=== PATIENT | male | born 1945 | race Caucasian/White ===

== ENCOUNTER 2017-02-03 08:00 | Day surgery (SDC) | payer MEDICARE, OTHER ==
[2017-02-03 07:52] VITALS: TEMP 96.5
[~2017-02-03 08:00] MED LIST: LACTATED RINGERS 1,000 ML ONE
[2017-02-03 08:29] VITALS: BP 160/93; O2SAT 95
--- NOTE | 2017-02-03 09:47 | OP ---
DATE OF PROCEDURE: 02/03/17 PREOPERATIVE DIAGNOSIS: 1. Colon cancer screen. 2. Recent episode of bright red blood per rectum. POSTOPERATIVE DIAGNOSIS: 1. External hemorrhoids. 2. Sigmoid diverticulosis. 3. 10 cm area of colitis extending from 20 to 30 cm which was in the sigmoid colon. PROCEDURE: 1. Colonoscopy with biopsy of the area of colitis. SURGEON: Giacomo Michele MD. ANESTHESIA: MAC by Gerry Nassar CRNA. ESTIMATED BLOOD LOSS: Less than 2 mL. COMPLICATIONS: None apparent. TECHNIQUE: After informed consent was obtained from the patient, the patient was taken to the Endoscopy Suite and put in the left lateral decubitus position. After adequate IV sedation was obtained, a digital rectal exam was performed. The patient is noted to have non-thrombosed external hemorrhoidal tags, but no evidence of inflammation or bleeding. Sphincter tone was normal, prostate is smooth, 2+ and anodular. No intraluminal masses. The colonoscope was then passed with good visualization through the colon. The bowel prep was adequate, but there was moderate amount of liquid stool that had to be suctioned clear in different areas throughout the colon. In the sigmoid colon around 20 to 30 cm, there was an area of very intense inflammation, edema and evidence of recent bleeding. This looks like colitis. Cancer could not be excluded. No distinct masses or polyps were identified in this area. The patient was also noted to have some scattered diverticula throughout the sigmoid region. The scope was advanced all the way to the cecum, which was identified by the presence of the typical landmarks including the ileocecal valve and scar from his prior appendectomy. The scope was then withdrawn over about a 12 minute period and a good look at the entire colonic mucosa was obtained. No other abnormalities except those described above were identified. I took two biopsies from the more inflamed portions of the sigmoid colon. There was a little bit of brisk bleeding immediately after the biopsy, but it quickly subsided and I think we are going to have good hemostasis. No electrocautery was necessary. The scope was removed. The patient tolerated the procedure well. The patient was transported to the outpatient area in good condition. I am going to have him start a high fiber diet and we will have him come see me in the office in one week so we can review his pathology. #[id number] [facility]
[2017-02-03] MEDS ORDERED: PROPOFOL 200 MG/20 ML VIAL IV ONE (12:00)
== END 2017-02-03 08:30 | disposition home or self-care (01) ==
LOC: AMB 08:00
PROVIDERS: ATTEND Family Medicine
DX: K62.5 Hemorrhage of anus and rectum (principal); K52.9 Noninfective gastroenteritis and colitis, unspecified; K64.4 Residual hemorrhoidal skin tags; K57.30 Diverticulosis of large intestine without perforation or abscess without bleeding; I25.10 Atherosclerotic heart disease of native coronary artery without angina pectoris; J44.9 Chronic obstructive pulmonary disease, unspecified; E78.00 Pure hypercholesterolemia, unspecified; Z95.5 Presence of coronary angioplasty implant and graft; Z87.891 Personal history of nicotine dependence; Z79.82 Long term (current) use of aspirin; Z79.899 Other long term (current) drug therapy
CPT/HCPCS: 00810; 45380; 88305; J3490; J7120

== ENCOUNTER 2017-05-22 05:00 | Day surgery (SDC) | payer MEDICARE, OTHER ==
--- NOTE | 2017-05-17 16:03 | RAD ---
EXAM DESCRIPTION: Chest,2 Views CLINICAL HISTORY: surg 05/22/17 COMPARISON: None FINDINGS: Two-view chest x-ray shows cardiomediastinal silhouette and pulmonary vasculature to be within normal limits. The lungs are hyperinflated. No acute infiltrate or consolidation is seen. Chronic interstitial markings are noted.. Costophrenic angles are sharp. Osseous structures are unremarkable IMPRESSION: No radiographic evidence of acute cardiopulmonary disease in this emphysematous chest. Electronically signed by: Cachorro Jesus MD 05/17/2017 4:01 PM CDT
[2017-05-22] MEDS ORDERED: ceFAZolin SODIUM 1 GM VIAL ONE (06:31)
[2017-05-22] MEDS ORDERED: SODIUM CHL 0.9% 100ML MINI-BAG 100 ML IVPB ONE (06:31)
[2017-05-22] MEDS ORDERED: LACTATED RINGERS 1,000 ML ONE (06:31)
[2017-05-22 08:11] VITALS: BP 145/69; O2SAT 97
[2017-05-22] MEDS ORDERED: ROCURONIUM BROMIDE 10 MG/ML VIAL ONE (08:24)
[2017-05-22] MEDS ORDERED: MIDAZOLAM INJ 2 MG/2 ML VIAL ONE (08:24)
[2017-05-22] MEDS ORDERED: fentaNYL CITRATE INJ 50 MCG/ML AMP ONE (08:24)
[2017-05-22] MEDS: BUPIVACAINE 0.25% W/EPI 50 ML VIAL INJ ONE ×2 (09:11→09:15)
[2017-05-22] MEDS ORDERED: ELECTROLYTE-A 1,000 ML IVS ONE (09:54)
[2017-05-22] MEDS ORDERED: DEXAMETHASONE INJ 10 MG/ML VIAL IV ONE (10:00)
[2017-05-22] MEDS ORDERED: KETOROLAC TROMETHAMINE INJ 30 MG/ML VIAL IV ONE (10:00)
[2017-05-22] MEDS ORDERED: raNITIdine HCL INJ 25 MG/ML VIAL IV ONE (10:00)
[2017-05-22] MEDS ORDERED: PROPOFOL 200 MG/20 ML VIAL IV ONE (10:00)
[2017-05-22] MEDS ORDERED: PHENYLEPHRINE INJ 1ML 10 MG/ML VIAL IV ONE (10:00)
[2017-05-22] MEDS ORDERED: ePHEDrine SULF 50 MG/ML IV ONE (10:00)
[2017-05-22] MEDS ORDERED: SODIUM CHLORIDE 0.9% 50 ML VIAL INJ ONE (10:00)
[2017-05-22] MEDS ORDERED: LIDOCAINE 1% 10 ML VIAL INJ ONE (10:00)
[2017-05-22] MEDS ORDERED: METOCLOPRAMIDE HCL INJ 10 MG/2 ML VIAL IV ONE (10:00)
[2017-05-22] MEDS ORDERED: SUGAMMADEX SODIUM 200 MG/2 ML VIAL IV ONE (10:21)
[2017-05-22 11:18] VITALS: TEMP 96.6
--- NOTE | 2017-05-22 11:56 | OP ---
DATE OF PROCEDURE: 05/22/17 PREOPERATIVE DIAGNOSIS: 1. Left inguinal hernia. POSTOPERATIVE DIAGNOSIS: 1. Left inguinal hernia. PROCEDURE: 1. Repair of left inguinal hernia. SURGEON: Santos Foster MD. DRAFTER ELECTRONIC: None. ANESTHESIA: General endotracheal anesthesia and local infiltration of 0.25% Marcaine with epinephrine. INDICATION: The patient is a 71-year-old male who has had a hernia for approximately 10 years. It has become more symptomatic and larger recently. He has undergone a workup of his colon by Dr. Sanchez and has been cleared for herniorrhaphy by his physicians. He was brought to the Surgical Suite today for the hernia repair. The risks, benefits and alternatives were discussed and accepted. FINDINGS: The patient had a large indirect inguinal hernia with somewhat loosening of the floor of the canal, but no direct herniation. There was no sliding component. PROCEDURE: After adequate general endotracheal anesthesia was obtained, the patient was prepped and draped in the usual sterile manner. He was given IV Ancef. At this point, a surgical time-out was taken. An incision in the left groin was first marked with a marking pen and the infiltration of anesthesia. The skin was incised with a knife. Dissection was carried down through the skin and subcutaneous tissue to the external oblique fascia using electrocautery and blunt dissection. The external oblique fascia was then opened in the direction of the fibers through the external ring and was dissected free from the floor of the canal and the cord. Self-retaining retractor was placed at this level. The cord and nerves were dissected free from the cord and from the floor of the canal. The nerve was dissected inferiorly. A half inch Olive drain was placed around it for traction. The cord was then explored with the indirect hernia sac dissected free down to the level of the internal inguinal ring. Cord lipoma times two were excised using electrocautery and clamps, ligatures of 3-0 Vicryl. When this was done, a Surgimesh patch was introduced under the floor of the canal and sutured circumferentially to close the indirect defect. The Surgimesh patch was then fashioned around the cord in the usual manner with interrupted 2-0 Vicryl sutures. When this was done, the wound was irrigated with saline. Hemostasis was noted to be adequate. The cord was placed back in position in the canal. The external oblique fascia was then closed with running 3-0 Vicryl suture. The cord and subcutaneous tissue above, below and lateral to the incision were infiltrated with local anesthesia. The Michaela's fascia was approximated with interrupted 3-0 Chromic suture. Skin edges were approximated with skin stapler. Sterile pressure dressing was applied. The scrotum was checked for position of the testicle. The patient was awakened and taken to the Recovery Room in good and stable condition. Estimated blood loss was less than 50 mL. All sponge, needle and instrument counts were correct. #[id number] [facility]
== END 2017-05-22 11:55 | disposition home or self-care (01) ==
LOC: AMB 05:00
PROVIDERS: ATTEND Surgery
DX: K40.90 Unilateral inguinal hernia, without obstruction or gangrene, not specified as recurrent (principal); J44.9 Chronic obstructive pulmonary disease, unspecified; I10 Essential (primary) hypertension; I25.10 Atherosclerotic heart disease of native coronary artery without angina pectoris; E78.00 Pure hypercholesterolemia, unspecified; Z87.891 Personal history of nicotine dependence; Z95.5 Presence of coronary angioplasty implant and graft; Z79.899 Other long term (current) drug therapy
CPT/HCPCS: 00830; 36415; 49505; 71020; 80048; 81001; 85025; 93005; A4216; C1781; J0690; J1100; J1885; J2250; J2765; J2780; J3010; J3490; J7050; J7120

== ENCOUNTER → 2017-07-04 | Outpatient (CLI) | payer MEDICARE, OTHER | END | disposition home or self-care (01) | LOC: GMAJ 10:29 | PROVIDERS: ATTEND Family Medicine | DX: Z12.5 Encounter for screening for malignant neoplasm of prostate (principal) ==

== ENCOUNTER 2018-01-08 17:56 | Observation (INO) | payer MEDICARE, OTHER ==
[2018-01-08] MEDS ORDERED: ENOXAPARIN SODIUM 100 MG/ML SYG SUBCU ONE (19:49)
[2018-01-08] MEDS ORDERED: PANTOPRAZOLE SODIUM IV 40 MG VIAL IV ONE (19:50)
[2018-01-08] MEDS ORDERED: IPRATROPIUM/ALBUTEROL 3 ML VIAL NEB ONE (19:54)
--- NOTE | 2018-01-08 20:00 | ED.PDOC ---
History of Present Illness - General Chief Complaint: General Stated Complaint: abnormal labs Time Seen by Provider: 01/08/18 18:00 Source: patient Exam Limitations: no limitations - History of Present Illness Initial Comments: the patient is a 72-year-old patient that was seen here earlier this morning secondary to left anterior lateral chest pain that was fairly sharp in nature lasting probably less than 10 minutes. The patient was seen this morning and the chest pain had resolved by the time he arrived here. He'll take a couple of aspirin at home. Due to him having a history of coronary artery disease the plan was to put him in for a long rule out. The patient would have none of it and left AGAINST MEDICAL ADVICE. Apparently during the day his daughter and Dr. Michele managed to convince him to come back in for the longer rule out. The patient has had no recurrence of the chest pain since this morning. He does report that he did get an exercise bicycle yesterday and did exercise very hard and he thinks this may be the source of the chest discomfort as a medical muscle. This is possible. He does not have any chest wall tenderness to palpation. He does not have any pain with movement. He does have some COPD and does have some very mild scattered wheezes which may also be contributing. No evidence of any real overt infection at this time. No fevers. No productive cough. He is not hypoxic. Timing/Duration: 1/2 hour Severity: moderate Improving Factors: medication Worsening Factors: nothing Associated Symptoms: chest pain Allergies/Adverse Reactions: Allergies NO KNOWN ALLERGY Allergy (Verified 11/24/13 08:08) Home Medications: Ambulatory Orders Albuterol Inhaler [Ventolin Hfa Inhaler] 1 puff INH DAILY 02/01/17 Albuterol Inhaler [Ventolin Hfa Inhaler] 1 puff INH PRN PRN 02/01/17 Fluticasone/Salmeterol 100/50 [Advair Diskus] 1 puff INH PRN PRN 02/01/17 Metoprolol Succinate [Metoprolol Succinate ER] 25 mg PO PRN PRN 02/01/17 Aspirin [Aspirin Adult Low Dose] 81 mg PO 05/17/17 Atorvastatin Calcium [Lipitor] 20 mg PO 05/17/17 Furosemide [Lasix] 20 mg PO PRN 05/17/17 Review of Systems - Review of Systems Constitutional: States: no symptoms reported EENTM: States: no symptoms reported Respiratory: States: no symptoms reported Cardiology: States: chest pain Gastrointestinal/Abdominal: States: no symptoms reported Genitourinary: States: no symptoms reported Musculoskeletal: States: no symptoms reported Skin: States: no symptoms reported Neurological: States: no symptoms reported Endocrine: States: no symptoms reported All other Systems: No Change from Baseline Past Medical History (General) - Patient Medical History Hx Cardiac Disorders: Yes - 2 stents Hx Congestive Heart Failure: No Hx Diabetes: No Hx MRSA: No Surgical History: appendectomy, other Family Medical History - Family History Mother Family History: Unknown Physical Exam - Physical Exam General Appearance: Alert, Comfortable, No apparent distress Eye Exam: bilateral normal Ears, Nose, Throat: hearing grossly normal, normal ENT inspection, normal pharynx Neck: full range of motion, supple Respiratory: no respiratory distress, no accessory muscle use, wheezing - mild scattered Cardiovascular/Chest: normal peripheral pulses, no edema, bradycardia - mild Peripheral Pulses: radial,right: 2+, radial,left: 2+, dorsalis pedis,right: 2+, dorsalis pedis,left: 2+ Gastrointestinal/Abdominal: non tender, soft Rectal Exam: deferred Back Exam: normal inspection, no CVA tenderness Extremity: normal range of motion, non-tender, normal inspection, no pedal edema , normal capillary refill Neurologic: inoculator II-XII nml as tested, alert, normal mood/affect, oriented x 3 Skin Exam: normal color Comments: Vital Signs - 8 hr 01/08/18 18:00 Temperature 97.9 F Pulse Rate [ 57 L left brachial] Respiratory 16 Rate Blood Pressure 153/73 [left brachial] Progress - Progress Progress: 01/08/18 20:01 the patient is a 72-year-old male presenting to the emergency room secondary to left anterior lateral sharp chest wall pain this morning of a fairly brief duration. The patient is going to be placed in observation for the longer cardiac rule out given that he does have a significant cardiac history. Continue telemetry monitoring. The patient took 2 aspirin before his arrival here this morning and is currently receiving a dose of Lovenox. He is also receiving a dose of Protonix. He is also receiving a nebulizer treatment for COPD. Source of the chest pain in this patient at this time is still uncertain. Admit for further monitoring. - Results/Orders Results/Orders: Laboratory Tests 01/08/18 01/08/18 19:08 19:08 PT 11.3 INR 0.970 PTT (SP) 29.6 D-Dimer, Quantitative < 230 Creatine Kinase 56 CK-MB (CK-2) 1.8 CK-MB (CK-2) % Not Reportable Troponin I < 0.02 repeat EKG shows mild sinus bradycardia rate of 55 bpm. Normal QT corrected interval. Persistent mild peaking of the T waves in anterior leads. This is an old finding. Very mild right axis deviation which is also an old finding. Departure - Departure Clinical Impression: Chest pain Qualifiers: Chest pain type: unspecified Qualified Code(s): R07.9 - Chest pain, unspecified Disposition: Admit Patient Home Medications: Ambulatory Orders Albuterol Inhaler [Ventolin Hfa Inhaler] 1 puff INH DAILY 02/01/17 Albuterol Inhaler [Ventolin Hfa Inhaler] 1 puff INH PRN PRN 02/01/17 Fluticasone/Salmeterol 100/50 [Advair Diskus] 1 puff INH PRN PRN 02/01/17 Metoprolol Succinate [Metoprolol Succinate ER] 25 mg PO PRN PRN 02/01/17 Aspirin [Aspirin Adult Low Dose] 81 mg PO 05/17/17 Atorvastatin Calcium [Lipitor] 20 mg PO 05/17/17 Furosemide [Lasix] 20 mg PO PRN 05/17/17 Decision To Admit - Decistion To Admit Decision to Admit Reason: Medical Nature Decision to Admit Date: 01/08/18 Decision to Admit Time: 20:03
[2018-01-08] MEDS ORDERED: ASPIRIN (CHEWABLE) 81 MG TAB PO ONE (20:54)
[2018-01-08] MEDS ORDERED: ACETAMINOPHEN 325 MG TAB PO PRN (20:54)
[2018-01-08] MEDS ORDERED: NITROGLYCERIN 0.4 MG 25 EA TAB SL PRN (20:54)
[2018-01-08] MEDS ORDERED: SODIUM CHLORIDE 0.9% (FLUSH) 10 ML SYG IV PRN (20:54)
[2018-01-08] MEDS ORDERED: IV SET AND CAP CHANGE INJ INJ SCH (21:00)
[2018-01-08] MEDS: SODIUM CHLORIDE 0.9% (FLUSH) 10 ML SYG IV SCH (22:07)
[2018-01-08] MEDS ORDERED: TEMAZEPAM 15 MG CAP PO PRN (23:24)
[2018-01-09] MEDS: SODIUM CHLORIDE 0.9% (FLUSH) 10 ML SYG IV SCH (08:03)
[2018-01-09 08:28] VITALS: O2SAT 96
[2018-01-09] MEDS ORDERED: BIFIDOBACTERIUM INFANTIS 4 MG CAP PO SCH (09:00)
[2018-01-09] MEDS ORDERED: ASPIRIN TABLET 325 MG TAB PO SCH (09:00)
[2018-01-09 09:58] VITALS: BP 144/89; TEMP 98.3
--- NOTE | 2018-01-09 19:56 | SSS ---
SUPERVISING PHYSICIAN: Maurice Bullock M.D. DIAGNOSIS AT DISCHARGE: 1. Chest pain rule out with no evidence of acute myocardial infarction with EKG showing sinus bradycardia with no ST or T wave changes and multiple troponins in a every 6 hour series showing to be less than 0.02. 2. History of coronary artery disease with a previous stent placement in 2012. 3. Hyperlipidemia. 4. Hypertension 5. Chronic obstructive pulmonary disease without any evidence of exacerbation. REASON FOR HOSPITALIZATION: Mr. Bernal is a 72 year-old male patient of Dr. Michele. He was seen in the title i director on 01/08/18 presenting to the E. R. secondary to some left anterolateral chest pain that he noted was sharp in nature lasting less than 10 minutes. He initially presented at that time and was told that he needed to stay for an observation period to rule out any further evidence of cardiac involvement, however the patient opted to leave against medical advice. The patient went home and his daughter, who is a nurse, as well as Dr. Michele convinced him to go back to the hospital for continued rule out. He had no recurrence of his chest pain since the previous admission. He also notes of interest that he had gotten an exercise bike the previous day and had exercised very extensively, and thinks that may have been the source of his chest discomfort. He also has a history of Clostridium Difficile infections with recent treatment in the last weeks and notes he has a lot of gas, and feels like maybe the gas was causing his discomfort. He took 2 aspirin which made the pain go away. He has a history of chronic obstructive pulmonary disease and previous cardiac stents with significant coronary artery disease and hypertension. Given his co- morbidities and risk factors, he was placed in Observation overnight for further observation on telemetry to rule out acute myocardial infarction. His initial EKGs in the E. R. showed sinus bradycardia at 55 with no acute findings compared to previous EKGs. His initial labs in the morning showed that he did have an elevated D-dimer at 232, however on second repeat at 7 o'clock after admission D-dimer was normalized. He had multiple cardiac enzymes completed, 1 set in the E. R. with 1 set at time of admission, both showing less than 0.02. The patient was without any chest pains and was placed in Observation in stable condition. PAST MEDICAL HISTORY: 1. Coronary artery disease. 2. Hyperlipidemia. 3. Hypertension. 4. Chronic obstructive pulmonary disease. 5. Renal stones. CURRENT MEDICAL PROVIDERS: Dr. Carlisle, Cardiology Dr. Michele, primary care provider PAST SURGICAL HISTORY: 1. Appendectomy. 2. Coronary artery stent placement in 2012. 3. Hernia repair in 2017, left inguinal. 4. Kidney stone removal in 2013 with a temporary urethral stent. CURRENT MEDICATIONS: 1. Metoprolol 25 mg 1 daily. 2. Lasix 20 mg as needed daily. 3. Trelegy ellipta 100 mcg/62.5 mg/25 mcg inhalation, 1 inhalation daily. 4. Aspirin 81 mg daily. 5. Albuterol nebulizer solution 0.083% nebulized q.i.d. as needed. 6. Ventolin handheld inhaler 1 puff every 4 hours as needed. 7. Lipitor 40 mg 1 daily. ALLERGIES: NO KNOWN DRUG ALLERGIES. FAMILY HISTORY: Mother at age 82 secondary to cancer. Father at age 66 from cardiovascular disease. SOCIAL HISTORY: The patient lives in [place]. He is single, . 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 He has a history of cigarette smoking in the past but quit in 2007. He notes that he drinks alcohol very infrequently. REVIEW OF SYSTEMS: CONSTITUTIONAL: Denies any fevers, chills, body aches. HEENT: No headache, vision changes, nasal congestion, sore throat or ear ache. RESPIRATORY: No reported coughing, wheezing or shortness of breath or exertional dyspnea. CARDIOVASCULAR: Chest pain noted in History of Present Illness, but pain free on admission. No syncopal episodes. No edema. GASTROINTESTINAL: Has a history of colitis and Clostridium Difficile infections in the recent past, but is currently without any symptoms. GENITOURINARY: Denies any dysuria, hematuria, polyuria or other urinary symptoms. NEUROLOGIC: No ataxia, seizure activity or neurological focal deficits. PHYSICAL EXAMINATION: VITAL SIGNS: Temperature 97.9, pulse 57, blood pressure 153/73, respirations 16 , satting 96% on room air. Discharge vital signs showed his blood pressure was 144/89, heart rate 67, satting 96% on room air with temperature 98.3. Admission weight was 65.9 kg. GENERAL: On the Medical/Surgical floor, the patient was resting comfortably in no apparent acute distress and was without any complaints, and no chest pain and was alert. HEENT: Tympanic membranes were clear bilaterally. Oropharynx was pink and moist without any lesions. NECK: Supple, non-tender. Full range of motion. No jugular venous distention. CHEST: Lungs are clear to auscultation without any rhonchi, wheezing or rales. CARDIOVASCULAR: Regular rate and rhythm without appreciable murmurs, gallops, or rubs showing bradycardic rhythm on monitor. GASTROINTESTINAL: No abdominal pains. Bowel sounds are present. It was soft, non-tender. EXTREMITIES: No clubbing, cyanosis or edema. NEUROLOGIC: Cranial nerves II-XII are grossly intact. Facial features are symmetrical. Extraocular movements are within normal limits. There is no notable nystagmus. He was alert and oriented times three. LABORATORY STUDIES: On initial admission through the E. . early today, a CBC showed a white count of 7,800 with a normal platelet count at 252,000. Differential was within normal limits. Coagulation study initially was showing an elevated D-dimer at 232. PT and PTT were normal. Repeat after admission the second time was showing a D-dimer less than 230. Chemistries on admission through the E. . initially showed normal electrolytes, BUN 11, creatinine 0.78. Liver functions all were within normal limits. Troponin was less than 0.02. CK was normal at 50. Additional 3 other sets of cardiac enzymes were completed, all showing a troponin less than 0.02. Lipid panel showed triglycerides of 79, cholesterol 141, LDL of 81, HDL of 42. RADIOLOGY: Initially he had a chest x-ray on first admission in the E. R. and per radiology interpretation showed emphysematous changes of the lungs with no acute parenchymal infiltrates per radiology. HOSPITAL COURSE: Mr. Bernal was placed in Observation from the E. . for continued cardiac telemetry monitoring. On initial presentation, the second time the patient was without any pain, but had agreed to be admitted for continued observation. His cardiac enzymes all remained negative. His EKG was showing sinus bradycardia without any EKG changes. There were no abnormal rhythms noted through the night. He had no recurrence of his chest pains. No other medications were given other than his home medications. He was given Lovenox initially 100 mg subcue in the E. R. as well as some Protonix. The patient had no complications, remained stable and on the morning of discharge was without any pain and was ambulating with minimal effort with no reported chest pains. DIAGNOSIS: Same as final diagnoses above. PLAN: The patient was placed in Observation for close telemetry monitoring. He was found to be clinically stable and was without any chest pains and any evidence of acute myocardial infarction. Therefore on the morning of 01/09/18 he was discharged back home to have close clinical followup with both his public health specialist, Dr. Carlisle and his primary care provider, Dr. Michele. Medications prior to hospitalization were continued as previous. He was given instructions to return to the hospital should he have any concerning symptoms or return of his chest pains. Activity is increase as tolerated. Diet was regular diet as tolerated. New prescriptions at discharge included Nitro tablets 0.4 mg 1 every 5 minutes times 3, 1 bottle for chest pains. Instructions to call 911 or present to the E. R. for further evaluation. Condition at discharge was stable and improved. #[id number] [facility]
== END 2018-01-09 10:02 | disposition home or self-care (01) ==
LOC: ER 17:56 → MS 20:43
PROVIDERS: ADMIT Nurse Practitioner Family; ATTEND Nurse Practitioner Family
DX: R07.89 Other chest pain (principal); R00.1 Bradycardia, unspecified; I25.10 Atherosclerotic heart disease of native coronary artery without angina pectoris; E78.5 Hyperlipidemia, unspecified; I10 Essential (primary) hypertension; J44.9 Chronic obstructive pulmonary disease, unspecified; R79.89 Other specified abnormal findings of blood chemistry; Z95.5 Presence of coronary angioplasty implant and graft; Z79.82 Long term (current) use of aspirin; Z79.51 Long term (current) use of inhaled steroids; Z79.899 Other long term (current) drug therapy; Z87.891 Personal history of nicotine dependence; Z82.49 Family history of ischemic heart disease and other diseases of the circulatory system
CPT/HCPCS: J7620; J1650; 85379 ×2; 82553 ×4; 80053; 80061; 36415 ×5; 85025; 82550 ×4; 83735; 85730 ×2; 85610 ×2; 84484 ×4; 83880; 36416 ×2; 71045; 94760 ×2; 94640; 99285; 93005 ×3; G0378; 96372; 96374

== ENCOUNTER 2018-02-17 09:00 | Emergency (ER) | payer MEDICARE, OTHER ==
[2018-02-17] MEDS ORDERED: MECLIZINE HCL 12.5 MG TAB PO ONE (09:35)
--- NOTE | 2018-02-17 09:39 | ED.PDOC ---
History of Present Illness - General Chief Complaint: Neuro Symptoms/Deficits Stated Complaint: Dizziness Time Seen by Provider: 02/17/18 09:06 Source: patient Exam Limitations: no limitations - History of Present Illness Initial Comments: THIS PATIENT DRIVES TO THE ED WITH A THREE HOUR HX OF DIZZINESS. HE VOICES THAT WHENEVER HE MOVES HIS HEAD HE FEELS DIZZY AND NAUSEATED. HE WAS RECENTLY EVALUATED BY HIS PHOTONICS ENGINEERING TECHNICIAN, DR. PHAM AND TOLD THAT HE HAS A MURMUR. HE IS SCHEDULED FOR A VEE AND A CT ANGIO OF THE CHEST THIS COMING MONDAY. 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 Allergies/Adverse Reactions: Allergies NO KNOWN ALLERGY Allergy (Verified 11/24/13 08:08) Home Medications: Ambulatory Orders Nitroglycerin 0.4 mg Tab [Nitrostat] 1 ea SL Q5MIN PRN #1 bttl 01/09/18 Albuterol Sulfate [Ventolin Hfa] 1 puff INH QID PRN 02/17/18 Amoxicillin & Pot Clavulanate [Augmentin Xr 1000-62.5 mg] 1 tab PO BID #20 tab 02/17/18 Atorvastatin Calcium 40 mg PO BEDTIME 02/17/18 Fevjhaikaah-Tyshkmhrikfu-Kxffj [Trelegy Ellipta 100-62.5-25 Mcg/INH] 1 day PO BID 02/17/18 Fluticasone/Salmeterol 250/50 [Advair Diskus] 1 puff INH BID 02/17/18 Meclizine HCl [Antivert] 12.5 mg PO TID #5 tab 02/17/18 Review of Systems - Review of Systems Constitutional: States: malaise, other - RYNNY NOSE EENTM: States: nose congestion Respiratory: States: short of breath Cardiology: States: no symptoms reported Gastrointestinal/Abdominal: States: nausea Genitourinary: States: no symptoms reported Musculoskeletal: States: no symptoms reported Skin: States: no symptoms reported Neurological: States: other - DIZZINESS Endocrine: States: no symptoms reported Hematologic/Lymphatic: States: no symptoms reported Past Medical History (General) - Patient Medical History Hx Seizures: No Hx Stroke: No Hx Asthma: No Hx of COPD: Yes Hx Cardiac Disorders: Yes - high cholesterol; cardiac stents Hx Congestive Heart Failure: No Hx Pacemaker: No Hx Hypertension: Yes Hx Diabetes: No Hx MRSA: No Surgical History: other - Vaccination History Hx Influenza Vaccination: No Hx Pneumococcal Vaccination: Yes - 2017 - Social History Hx Tobacco Use: Yes - Quit 2007 Hx Alcohol Use: No Hx Substance Use: No Hx Physical Abuse: No Hx Emotional Abuse: No Family Medical History - Family History Mother Family History: Unknown Living Status: Hx Family Hypertension: Yes Hx Family Stroke: Yes Father Family History: Unknown Living Status: Hx Family Asthma: No Hx Family Congestive Heart Failure: No Hx Family Hypertension: Yes Hx Family Stroke: Yes Hx Cardiac Disease: No Hx Family Diabetes: No Hx Family Cancer: Yes Physical Exam - Physical Exam General Appearance: Alert, No apparent distress, Well Developed, Well Groomed, Well Hydrated Eye Exam: bilateral normal Ears, Nose, Throat: hearing grossly normal, normal ENT inspection Neck: non-tender, full range of motion, supple, normal inspection Respiratory: chest non-tender, lungs clear, normal breath sounds Cardiovascular/Chest: normal peripheral pulses, regular rate, rhythm, no edema, no gallop, no JVD, systolic murmur - GRADE TWO ON THE LEFT STERNAL BRDER Peripheral Pulses: radial,right: 2+, radial,left: 2+ Gastrointestinal/Abdominal: normal bowel sounds, non tender, soft Rectal Exam: deferred Back Exam: normal inspection Extremity: normal range of motion Neurologic: no motor/sensory deficits, alert, oriented x 3 Skin Exam: normal color Lymphatic: no adenopathy Progress - Progress Progress: 02/17/18 10:49 STILL DIZZY. MOST LIKELY DEALING WITH SINUSITIS. - Results/Orders Results/Orders: EKG: HR OF 69, [place] INTERVAL OF 188, QRS OF 90, QTC OF 439, AXES OF 63 DEGREES. IMPRESSION: SINUS RHYTHM NO ACUTE INJURY PATTERN. Departure - Departure Clinical Impression: Sinusitis Qualifiers: Sinusitis location: maxillary Chronicity: acute Recurrence: recurrent Qualified Code(s): J01.01 - Acute recurrent maxillary sinusitis Benign positional vertigo Qualifiers: Laterality: bilateral Qualified Code(s): H81.13 - Benign paroxysmal vertigo, bilateral Time of Disposition: 10:51 Disposition: Discharge to Home or Self Care Departure Forms: ED Discharge - Pt. Copy, Patient Portal Self Enrollment Instructions: Sinusitis in Adults, Vertigo (a Type of Dizziness) Referrals: Giacomo Michele MD [Primary Care Provider] - 1-2 Weeks Prescriptions: Amoxicillin & Pot Clavulanate [Augmentin Xr 1000-62.5 mg] 1 tab PO BID #20 tab Meclizine HCl [Antivert] 12.5 mg PO TID #5 tab Home Medications: Ambulatory Orders Nitroglycerin 0.4 mg Tab [Nitrostat] 1 ea SL Q5MIN PRN #1 bttl 01/09/18 Albuterol Sulfate [Ventolin Hfa] 1 puff INH QID PRN 02/17/18 Amoxicillin & Pot Clavulanate [Augmentin Xr 1000-62.5 mg] 1 tab PO BID #20 tab 02/17/18 Atorvastatin Calcium 40 mg PO BEDTIME 02/17/18 Irzlfckxwkk-Iyroxccoiqgr-Qiaun [Trelegy Ellipta 100-62.5-25 Mcg/INH] 1 day PO BID 02/17/18 Fluticasone/Salmeterol 250/50 [Advair Diskus] 1 puff INH BID 02/17/18 Meclizine HCl [Antivert] 12.5 mg PO TID #5 tab 02/17/18
[2018-02-17 09:55] VITALS: O2SAT 96
[2018-02-17 11:18] VITALS: BP 142/84; TEMP 98
== END 2018-02-17 11:00 | disposition home or self-care (01) ==
LOC: ER 09:00
DX: J01.01 Acute recurrent maxillary sinusitis (principal); H81.13 Benign paroxysmal vertigo, bilateral; J44.9 Chronic obstructive pulmonary disease, unspecified; E78.00 Pure hypercholesterolemia, unspecified; I10 Essential (primary) hypertension; Z87.891 Personal history of nicotine dependence; Z98.61 Coronary angioplasty status

== ENCOUNTER 2018-12-10 12:40 | Emergency (ER) | payer MEDICARE, OTHER ==
[2018-12-10 12:57] VITALS: TEMP 98.2
--- NOTE | 2018-12-10 13:07 | ED.PDOC ---
History of Present Illness - General Chief Complaint: GI Problem Time Seen by Provider: 12/10/18 12:48 Information Source: patient - History of Present Illness Initial Comments: HE WAS DIAGNOSED WITH C DIFF TWO YEARS AGO. HE WAS BEING TREATED BY DR. VERDIN WITH FLAGYL, VANCO AND A THIRD VERY EXPEMSIVE ANTIBIOTIC THAT THE PATIENT CANNOT REMEMBER. FOR SOME REASON THE PATIENT DECIDED TO QUIT SEEING DR. VERDIN AND THROUGH THE INTERNET FOUND SOME HERBS. HE HAS BEEN USING THE HERBS UNSUCCESSFULLY NOW FOR ABOUT NINE MONTHS. HE VOICES THAT HE HAS LOST 25 LBS ON THESE TWO YEARS. HAS AN AVERAGE OF ABOUT 20 LIQUID STOOLS DAILY. Abdominal Pain Onset Location: generalized abdomen Pain Radiation: no radiation Quality: moderate Timing/Duration: other - TWO YEARS Improving Factors: nothing Worsening Factors: nothing Associated Symptoms: denies symptoms Review of Systems - Review of Systems Constitutional: States: no symptoms reported EENTM: States: no symptoms reported Respiratory: States: no symptoms reported Cardiology: States: no symptoms reported Gastrointestinal/Abdominal: States: abdominal pain, diarrhea, nausea Genitourinary: States: no symptoms reported Musculoskeletal: States: no symptoms reported Skin: States: no symptoms reported Neurological: States: no symptoms reported Endocrine: States: no symptoms reported Hematologic/Lymphatic: States: no symptoms reported Past Medical History (General) - Patient Medical History Hx Seizures: No Hx Stroke: No Hx Asthma: No Hx of COPD: Yes Hx Cardiac Disorders: Yes - high cholesterol; cardiac stents Hx Congestive Heart Failure: No Hx Pacemaker: No Hx Hypertension: Yes Hx Diabetes: No Hx Cancer: No Hx Hepatitis C: No Hx MRSA: No Surgical History: appendectomy - Vaccination History Hx Tetanus, Diphtheria Vaccination: No Hx Influenza Vaccination: Yes Hx Pneumococcal Vaccination: Yes Immunizations Up to Date: Yes - Social History Hx Tobacco Use: No Hx Alcohol Use: No Hx Substance Use: No Hx Substance Use Treatment: No Hx Depression: No Hx Physical Abuse: No Hx Emotional Abuse: No Family Medical History - Family History Mother Family History: Unknown Living Status: Hx Family Hypertension: Yes Hx Family Stroke: Yes Father Family History: Unknown Living Status: Hx Family Asthma: No Hx Family Congestive Heart Failure: No Hx Family Hypertension: Yes Hx Family Stroke: Yes Hx Cardiac Disease: No Hx Family Diabetes: No Hx Family Cancer: Yes - throat Physical Exam - Physical Exam General Appearance: Alert, No apparent distress, Well Developed, Well Groomed, Well Hydrated Eyes, Ears, Nose, Throat Exam: PERRL/EOMI, normal ENT inspection, pharynx normal Neck: non-tender, full range of motion, supple, normal inspection Respiratory: chest non-tender, lungs clear, normal breath sounds, no respiratory distress, no accessory muscle use Cardiovascular/Chest: normal peripheral pulses, regular rate, rhythm, no edema, no gallop Peripheral Pulses: No deficit Gastrointestinal/Abdominal: soft, no organomegaly, no pulsatile mass Rectal Exam: deferred Back Exam: normal inspection, no CVA tenderness, no vertebral tenderness Extremity: normal range of motion, non-tender, normal inspection Progress - Progress Progress: 12/10/18 16:06 HIS INITIAL VITALS WERE GOOD BUT SINCE HE HAS BEEN HERE HIS BP DROPPED TO SYSTOLIC OF 85. HE HEART RATE IS NORMAL. THE PATIENT HAS RECEIVED FLUIDS, NO ON HIS SECOND BAG. C-DIFF WAS NEGATIVE, A SEROLOGY TEST HAS BEEN ORDERED BUT IS A SEND OUT. I HAVE ORDERED A LACTIC ACID. THE WBC IS 11,00, NORMAL DIFF. THE CREATININE AND BUN ARE NORMAL. 12/10/18 16:30 BP NOW 102/69 AT THIS POINT I AM NOT SURE IF THIS PATIENT IS SEPTOC OF JUST VOLUME DEPLETED. I WILL TRANSFER TO UR. - Results/Orders Results/Orders: 12/10/18 13:02 URINALYSIS Stat 12/10/18 13:10 C. Diff Toxin By PCR Stat STOOL CULTURE Stat 12/10/18 13:12 CRYPTOSPORIDIA AG,STOOL Stat 12/10/18 15:57 Sodium Chloride 0.9% 1000ML [Ns 1000 ml] 1,000 ml IVS ONCE Laboratory Results WBC 11.2 K/mm3 (4.8-10.8) H 12/10/18 13:12 RBC 4.69 M/mm3 (4.70-6.10) L 12/10/18 13:12 Hgb 14.1 gm/dL (14.0-18.0) 12/10/18 13:12 Hct 43.6 % (42.0-52.0) 12/10/18 13:12 MCV 92.9 fl (80.0-94.0) 12/10/18 13:12 MCH 30.0 pg (27.0-31.0) 12/10/18 13:12 MCHC 32.3 g/dL (33.0-37.0) L 12/10/18 13:12 RDW 13.8 % (11.5-14.5) 12/10/18 13:12 Plt Count 454 K/mm3 (130-400) H 12/10/18 13:12 MPV 7.7 fl (7.40-10.4) 12/10/18 13:12 Absolute Neuts (auto) 7.70 K/uL (1.8-6.8) H 12/10/18 13:12 Absolute Lymphs (auto) 1.20 K/uL (1.0-3.4) 12/10/18 13:12 Absolute Monos (auto) 1.10 K/uL (0.2-0.8) H 12/10/18 13:12 Absolute Eos (auto) 1.20 K/uL (0.0-0.4) H 12/10/18 13:12 Absolute Basos (auto) 0.10 K/uL (0.0-0.1) 12/10/18 13:12 Neutrophils % 69.1 % (42.0-78.0) 12/10/18 13:12 Lymphocytes % 10.4 % (20.0-50.0) L 12/10/18 13:12 Monocytes % 9.4 % (2.0-9.0) H 12/10/18 13:12 Eosinophils % 10.6 % (1.0-5.0) H 12/10/18 13:12 Basophils % 0.5 % (0.0-2.0) 12/10/18 13:12 Sodium 138 mmol/L (135-145) 12/10/18 13:12 Potassium 3.6 mmol/L (3.6-5.0) 12/10/18 13:12 Chloride 98 mmol/L (101-111) L 12/10/18 13:12 Carbon Dioxide 26 mmol/L (21-31) 12/10/18 13:12 Anion Gap 17.6 (12-18) 12/10/18 13:12 BUN 12 mg/dL (7-18) 12/10/18 13:12 Creatinine 0.97 mg/dL (0.6-1.3) 12/10/18 13:12 BUN/Creatinine Ratio 12.4 (10-20) 12/10/18 13:12 Random Glucose 119 mg/dL (70-105) H 12/10/18 13:12 Serum Osmolality 276.6 mOsm/L (275-295) 12/10/18 13:12 Lactic Acid 1.1 mmol/L (0.5-2.2) 12/10/18 15:43 Calcium 8.9 mg/dL (8.4-10.2) 12/10/18 13:12 Total Bilirubin 0.6 mg/dL (0.2-1.0) 12/10/18 13:12 AST 29 IU/L (10-42) 12/10/18 13:12 ALT 12 IU/L (10-60) 12/10/18 13:12 Alkaline Phosphatase 94 IU/L (42-121) 12/10/18 13:12 Serum Total Protein 8.0 gm/dL (6.4-8.2) 12/10/18 13:12 Albumin 3.5 g/dl (3.2-5.5) 12/10/18 13:12 Globulin 4.5 gm/dL (2.3-3.5) H 12/10/18 13:12 Albumin/Globulin Ratio 0.8 (1.1-1.9) L 12/10/18 13:12 Stool Occult Blood Positive (NEGATIVE) 12/10/18 13:10 Departure - Departure Clinical Impression: Chronic diarrhea, Volume depletion, Weight loss, unintentional Time of Disposition: 16:34 Disposition: Transfer to Hospital Condition: Poor Referrals: Giacomo Michele MD [Active Staff] - 1-2 Weeks Home Medications: Ambulatory Orders Nitroglycerin 0.4 mg Tab [Nitrostat] 1 ea SL Q5MIN PRN #1 bttl 01/09/18 Albuterol Sulfate [Ventolin Hfa] 1 puff INH QID PRN 02/17/18 Atorvastatin Calcium 40 mg PO BEDTIME 02/17/18 Fluticasone/Salmeterol 250/50 [Advair Diskus] 1 puff INH BID 02/17/18 Meclizine HCl [Antivert] 12.5 mg PO TID #5 tab 02/17/18 Albuterol Inhaler [Ventolin Hfa Inhaler] 1 puff INH Q4HR PRN 12/10/18 Aspirin [Aspirin EC Low Dose] 81 mg PO DAILY 12/10/18 Comments: DIFFERENTIAL DIAGNOSIS: EARLY SEPSIS, C DIFF ENTEROCOLITIS Critical Care Note - Critical Care Note Total Time (mins): 35 Comments: CRITICAL EVENT: CHRONIC DIARRHEA CRITICAL FINDINGS: HYPOTENSION, NEGATIVE C-DIFF CRITICAL ACTIONS: IV CRYSTALOIDS, TRANSFER TO HIGHER LEVEL OF CARE CRITICAL TIME: 35 MINUTES SYSTEMS AT RISK: CARDIOVASCULAR, DIGESTIVE. Transfer to Outside Facility - Transfer Information Accepting Facility: [facility] Reason for Transfer: required specialist not available - I HAVE DISCUSSED THE CASE WITH DR. SAURABH AGUIRRE [facility] AND ACCEPTS THE PATIENT.
[2018-12-10] MEDS ORDERED: SODIUM CHLORIDE 0.9% 1000ML 1,000 ML ONE (15:01)
[2018-12-10] MEDS: SODIUM CHLORIDE 0.9% 1000ML 1,000 ML IVS ONE ×2 (15:07→16:03)
[2018-12-10 17:13] VITALS: BP 118/63; O2SAT 93
== END 2018-12-10 17:13 | disposition short-term general hospital (02) ==
LOC: ER 12:40
DX: R19.7 Diarrhea, unspecified (principal); E86.9 Volume depletion, unspecified; R63.4 Abnormal weight loss; I95.9 Hypotension, unspecified; J44.9 Chronic obstructive pulmonary disease, unspecified; E78.00 Pure hypercholesterolemia, unspecified; I10 Essential (primary) hypertension; Z87.19 Personal history of other diseases of the digestive system; Z90.49 Acquired absence of other specified parts of digestive tract; Z95.5 Presence of coronary angioplasty implant and graft; Z79.82 Long term (current) use of aspirin; Z79.899 Other long term (current) drug therapy
CPT/HCPCS: 36415; 80053; 81001; 82270; 83605; 85025; 87015; 87045; 87046; 87272; 87324; 87449; 87493; J7030

== ENCOUNTER 2019-05-21 19:36 | Emergency (ER) | payer MEDICARE, OTHER ==
--- NOTE | 2019-05-21 20:57 | ED.PDOC ---
History of Present Illness - General Chief Complaint: Respiratory Problem Stated Complaint: shortness of breath,palpitations Time Seen by Provider: 05/21/19 20:23 - History of Present Illness Initial Comments: 73 yo M PMH MVP Replacement Surgery at [facility] 7 days ago by Cardiothorasic Surgeon Dr. Omid Beebe. Since that time pt has had worsening weakness chest pain and sob, while in hospital pt had 2 episodes of vfib and this past Monday morning chest tube was removed. Monday evening pt had episode of afib and is in afib at this time. Pt. has since been weak and tachycardic per daughter who is a nurse and at bedside. She called Ranjan who is PA for Dr. Boudreaux at [phone] who exoressed concern for fluid accumulation in lung after chest tube and recommended pt be seen in the ED so they came to the ER. Pt. has Housekeeping Director in [facility] Dr. Noel. Pt. denies fever chills nausea vomiting diarrhea admits chest pain sob denies diaphoresis. Symptoms have decreased appetite and disturbed rest. No change in bowel or bladder. Admits remote history of drinking and smoking denies FH HTN DM no other c/o today. Allergies/Adverse Reactions: Allergies NO KNOWN ALLERGY Allergy (Verified 12/10/18 12:57) Home Medications: Ambulatory Orders Nitroglycerin 0.4 mg Tab [Nitrostat] 1 ea SL Q5MIN PRN #1 bttl 01/09/18 Albuterol Sulfate [Ventolin Hfa] 1 puff INH QID PRN 02/17/18 Atorvastatin Calcium 40 mg PO BEDTIME 02/17/18 Fluticasone/Salmeterol 250/50 [Advair Diskus] 1 puff INH BID 02/17/18 Meclizine HCl [Antivert] 12.5 mg PO TID #5 tab 02/17/18 Albuterol Inhaler [Ventolin Hfa Inhaler] 1 puff INH Q4HR PRN 12/10/18 Aspirin [Aspirin EC Low Dose] 81 mg PO DAILY 12/10/18 Review of Systems - Review of Systems Constitutional: States: see HPI, other - Fatigue EENTM: States: see HPI Respiratory: States: short of breath Cardiology: States: chest pain Gastrointestinal/Abdominal: States: see HPI Genitourinary: States: see HPI Musculoskeletal: States: see HPI Skin: States: see HPI Neurological: States: see HPI Endocrine: States: see HPI Hematologic/Lymphatic: States: see HPI All other Systems: Reviewed and Negative Past Medical History (General) - Patient Medical History Hx Seizures: No Hx Stroke: No Hx Asthma: No Hx of COPD: Yes Hx Cardiac Disorders: Yes - high cholesterol; cardiac stents Hx Congestive Heart Failure: No Hx Pacemaker: No Hx Hypertension: Yes Hx Diabetes: No Hx Cancer: No Hx Hepatitis C: No Hx MRSA: No Surgical History: appendectomy - Vaccination History Hx Tetanus, Diphtheria Vaccination: No Hx Influenza Vaccination: - unknown Hx Pneumococcal Vaccination: Yes - Social History Hx Tobacco Use: Yes Hx Alcohol Use: No Hx Substance Use: No Hx Substance Use Treatment: No Hx Depression: No Hx Physical Abuse: No Hx Emotional Abuse: No Family Medical History - Family History Mother Family History: Unknown Living Status: Hx Family Hypertension: Yes Hx Family Stroke: Yes Father Family History: Unknown Living Status: Hx Family Asthma: No Hx Family Congestive Heart Failure: No Hx Family Hypertension: Yes Hx Family Stroke: Yes Hx Cardiac Disease: No Hx Family Diabetes: No Hx Family Cancer: Yes - throat Physical Exam - Physical Exam General Appearance: No apparent distress Eye Exam: bilateral normal Ears, Nose, Throat: normal ENT inspection Neck: non-tender, full range of motion Respiratory: other - decreased breath sounds bilaterally Cardiovascular/Chest: irregularly irregular Gastrointestinal/Abdominal: non tender, soft Rectal Exam: deferred Back Exam: normal inspection Extremity: normal range of motion, non-tender Neurologic: oriented x 3 Skin Exam: normal color - right sided well healed mid axillary line chest tube site with suture in place mild ecchymosis Progress - Progress Progress: 05/21/19 21:00 A/P-Chest Pain, SOB, New Onset AFib, Elevated Troponin, 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 cxr cbc cmp trop pt ptt aspirin levaquin TRANSFER Cleve Alonso Cardiology 05/21/19 23:19 - Results/Orders Results/Orders: EKG-irregularly irregular rhythm atrial fibrillation at 103bpm abnormal EKG Laboratory Tests 05/21/19 05/21/19 20:31 20:31 WBC 12.1 H RBC 4.52 L Hgb 11.8 L Hct 37.1 L MCV 82.2 MCH 26.1 L MCHC 31.8 L RDW 16.8 H Plt Count 306 MPV 8.0 Absolute Neuts (auto) 8.60 H Absolute Lymphs (auto) 1.50 Absolute Monos (auto) 1.20 H Absolute Eos (auto) 0.60 H Absolute Basos (auto) 0.10 Neutrophils % 71.6 Lymphocytes % 12.1 L Monocytes % 10.3 H Eosinophils % 4.8 Basophils % 1.2 PT 10.2 INR 1.02 PTT (SP) 24.7 Sodium 139 Potassium 4.3 Chloride 100 L Carbon Dioxide 25 Anion Gap 18.3 H BUN 15 Creatinine 1.17 BUN/Creatinine Ratio 12.8 Random Glucose 117 H Serum Osmolality 279.4 Calcium 9.1 Magnesium 1.8 Total Bilirubin 0.8 Direct Bilirubin 0.1 Indirect Bilirubin 0.7 AST 28 ALT 23 Alkaline Phosphatase 52 Creatine Kinase 29 L CK-MB (CK-2) 0.9 CK-MB (CK-2) % Not Reportable Troponin I 0.16 H* B-Natriuretic Peptide 453.0 H* Serum Total Protein 6.6 Albumin 3.1 L Lipase 45 EXAM DESCRIPTION: Chest,1 View CLINICAL HISTORY: 73 years Male shortness of breath COMPARISON: January 08, 2018. TECHNIQUE: AP view of the chest was obtained. FINDINGS: Cardiac size is within normal limits. Central vessels are not increased. Valvular prosthesis. Patchy airspace opacities lower lungs bilaterally with chronic parenchymal changes noted. Minimal blunting right costophrenic angle. No effusion on left. No pneumothorax. IMPRESSION: Interval valvular replacement. COPD. Atelectatic change versus infiltrate lower lungs bilaterally right greater than left. Electronically signed by: Bree Marley MD 05/21/2019 8:54 PM CDT Took aspirin this am 325mg Departure - Departure Clinical Impression: SOB (shortness of breath), New onset a-fib, Elevated troponin Chest pain Qualifiers: Chest pain type: unspecified Qualified Code(s): R07.9 - Chest pain, unspecified Pneumonia Qualifiers: Pneumonia type: due to unspecified organism Laterality: unspecified laterality Lung location: unspecified part of lung Qualified Code(s): J18.9 - Pneumonia, unspecified organism Time of Disposition: 23:59 Disposition: Transfer to Hospital Condition: Fair Departure Forms: ED Discharge - Pt. Copy, Patient Portal Self Enrollment Referrals: Jett Coronel MD [Primary Care Provider] - 1-2 Weeks Home Medications: Ambulatory Orders Nitroglycerin 0.4 mg Tab [Nitrostat] 1 ea SL Q5MIN PRN #1 bttl 01/09/18 Albuterol Sulfate [Ventolin Hfa] 1 puff INH QID PRN 02/17/18 Atorvastatin Calcium 40 mg PO BEDTIME 02/17/18 Fluticasone/Salmeterol 250/50 [Advair Diskus] 1 puff INH BID 02/17/18 Meclizine HCl [Antivert] 12.5 mg PO TID #5 tab 02/17/18 Albuterol Inhaler [Ventolin Hfa Inhaler] 1 puff INH Q4HR PRN 12/10/18 Aspirin [Aspirin EC Low Dose] 81 mg PO DAILY 12/10/18 Transfer to Outside Facility - Transfer Information Decision to Transfer Date: 05/21/19 Decision to Transfer Time: 23:56 Reason for Transfer: required specialist not available Accepting Provider:: Dr Forrest LIANG 23:53 Accepting Facility: [facility]
[2019-05-21] MEDS ORDERED: levoFLOXacin 500 MG TAB PO ONE (23:09)
[2019-05-22 00:22] VITALS: TEMP 98.8
[2019-05-22 00:38] VITALS: BP 91/51; O2SAT 97
== END 2019-05-22 00:40 | disposition short-term general hospital (02) ==
LOC: ER 19:36
DX: J18.9 Pneumonia, unspecified organism (principal); R07.9 Chest pain, unspecified; I48.91 Unspecified atrial fibrillation; R06.02 Shortness of breath; R79.89 Other specified abnormal findings of blood chemistry; J44.9 Chronic obstructive pulmonary disease, unspecified; E78.00 Pure hypercholesterolemia, unspecified; I10 Essential (primary) hypertension; Z95.5 Presence of coronary angioplasty implant and graft; Z87.891 Personal history of nicotine dependence; Z79.82 Long term (current) use of aspirin; Z79.899 Other long term (current) drug therapy

== ENCOUNTER → 2019-09-18 | Outpatient (CLI) | payer MEDICARE, OTHER ==
--- NOTE | 2019-09-19 08:42 | RAD ---
Procedure: XR CHEST 2 VIEWS Exam Date: 09/18/2019 Ordering Provider: Jett Coronel Clinical Indication: ESSENTIAL HYPERTENSION Comparison: 05/21/2019 Findings: Cardiomediastinal silhouette is within normal limits. Prior cardiac valve surgery. Aortic calcification. No focal lung consolidation. Lungs are hyperinflated. Emphysema. No pleural effusion. No pneumothorax. No acute osseous abnormality. Impression: 1. No acute abnormality in the chest. Electronically signed by: Andrzej Valerio MD 09/19/2019 8:40 AM AUTOMOTIVE BRAKE SPECIALIST
== END ==
LOC: RAD 12:03
PROVIDERS: ATTEND Family Medicine
DX: I10 Essential (primary) hypertension (principal)

== ENCOUNTER → 2019-09-26 | Outpatient (CLI) | payer MEDICARE, OTHER ==
[~2019-09-26] MED LIST changes: +ALBUTEROL SULFATE 2.5 MG/3 ML VIAL NEB ONE; -LACTATED RINGERS 1,000 ML ONE
== END ==
LOC: RESP 09:57
PROVIDERS: ATTEND Family Medicine
DX: J44.9 Chronic obstructive pulmonary disease, unspecified (principal); I10 Essential (primary) hypertension
CPT/HCPCS: 36415; 85025; 94060; J7611

== ENCOUNTER → 2019-12-03 | Outpatient (CLI) | payer MEDICARE, OTHER | LOC: YCFC.O 12:37 | PROVIDERS: ATTEND Family Medicine | DX: E78.5 Hyperlipidemia, unspecified (principal); I10 Essential (primary) hypertension; R53.83 Other fatigue; Z12.5 Encounter for screening for malignant neoplasm of prostate | CPT/HCPCS: 36415; 80053; 80061; 81001; 84443; 85025; G0103 ==

== ENCOUNTER → 2019-12-05 | Outpatient (CLI) | payer MEDICARE, OTHER | LOC: LAB.O 10:52 | PROVIDERS: ATTEND Internal Medicine Cardiovascular Disease | DX: R06.00 Dyspnea, unspecified (principal) ==

== ENCOUNTER → 2020-01-03 | Outpatient (CLI) | payer MEDICARE, OTHER | LOC: LAB.O 11:06 | PROVIDERS: ATTEND Family Medicine | DX: K51.811 Other ulcerative colitis with rectal bleeding (principal); R19.7 Diarrhea, unspecified; R10.31 Right lower quadrant pain; D64.9 Anemia, unspecified ==

== ENCOUNTER → 2020-04-17 | Outpatient (CLI) | payer MEDICARE, OTHER | LOC: LAB.O 10:24 | PROVIDERS: ATTEND Internal Medicine Gastroenterology | DX: K51.811 Other ulcerative colitis with rectal bleeding (principal) ==

== ENCOUNTER → 2020-07-21 | Outpatient (CLI) | payer MEDICARE, OTHER ==
--- NOTE | 2020-07-22 11:55 | CT ---
EXAM DESCRIPTION: Sinuses CLINICAL HISTORY: 75 years Male, CHRONIC SINUSITIS COMPARISON: None. TECHNIQUE: CT of the paranasal sinuses was performed without IV contrast. This exam was performed according to our departmental dose-optimization program, which includes automated exposure control, adjustment of the mA and/or kV according to patient size and/or use of iterative reconstruction technique. FINDINGS: The paranasal sinuses are clear. No ethmoid or mastoid air cell effusion. No fluid in either middle ear. The nasal septum is midline, turbinates are unremarkable. The ostiomeatal units are bilaterally patent. The orbits are unremarkable. Intracranial vascular calcifications IMPRESSION: No sinusitis. Electronically signed by: Loki Rudolph MD 07/22/2020 11:53 AM BOILER/CHILLER TECHNICIAN
== END ==
LOC: CT 14:15
PROVIDERS: ATTEND Family Medicine
DX: R51.9 Headache, unspecified (principal)